=== PATIENT | male | born 2000 ===

== ENCOUNTER 2022-04-28 09:34 | Emergency (ER) | payer OTHER ==
[2022-04-28] MEDS ORDERED: Diphtheria,Pertussis(Acell),Tetanus Vaccine 0.5 ML Syringe IM ONE (10:07)
[2022-04-28 10:46] LABS: CARBON DIOXIDE,CO2 25.8 mmol/L (21.0-32.0); POTASSIUM,K 3.2 mmol/L (3.5-5.1)
[2022-04-28] MEDS ORDERED: Potassium Chloride 20 MEQ Tab.ER PO ONE (15:41)
[2022-04-28] MEDS ORDERED: Ondansetron 4 MG/2 ML SDV IVPUSH ONE (16:57)
[2022-04-28] MEDS ORDERED: Morphine 4 MG/ML VIAL IVPUSH ONE (16:57)
[2022-04-28] MEDS ORDERED: ceFAZolin 2 GM in Premix Bag 1 BAG IV ONE (19:45)
[2022-04-28] MEDS ORDERED: Iopamidol 755 MG/ML 500 ML Multipack Bottle IVPUSH ONE (20:21)
== END 2022-04-28 21:00 ==
LOC: MW.ED 09:34
DX: S41.111A Laceration without foreign body of right upper arm, initial encounter (principal); S50.351A Superficial foreign body of right elbow, initial encounter; E87.6 Hypokalemia; Z20.822 Contact with and (suspected) exposure to COVID-19; W26.8XXA Contact with other sharp object(s), not elsewhere classified, initial encounter
CPT/HCPCS: 36415; 73206; 80048; 85025; 87635; 90471; 90715; 96365; 96375; 99284; A9270; J0690; J2270; J2405; Q9967; U0002